=== PATIENT | female | born 1990 | race Caucasian/White ===

== ENCOUNTER → 2016-08-29 | Outpatient (CLI) | payer OTHER | END | disposition disaster alternative care site (69) | LOC: GRAD 12:38 | DX: Z32.01 Encounter for pregnancy test, result positive (principal); O99.89 Other specified diseases and conditions complicating pregnancy, childbirth and the puerperium; R10.31 Right lower quadrant pain; Z3A.01 Less than 8 weeks gestation of pregnancy ==